=== PATIENT | female | born 1970 | race Caucasian/White ===

== ENCOUNTER → 2024-07-03 | Outpatient (CLI) | payer MEDICAID, SELFPAY | END | disposition home or self-care (01) | LOC: PSN 12:55 | PROVIDERS: PCP Nurse Practitioner Family; Referring Provider Nurse Practitioner Family; Visit Provider Nurse Practitioner Family | DX: J44.9 Chronic obstructive pulmonary disease, unspecified (principal) | CPT/HCPCS: 94060; 94726; 94729 ==

== ENCOUNTER 2024-08-14 10:00 | Outpatient (RCR) | payer MEDICAID, SELFPAY ==
--- NOTE | 2024-08-16 09:07 | HP.FCE ---
Task Lift Floor (Occasional 1-33% of Day): 40# Floor (Frequent 34-66% of Day): 20# Floor (Constant 67-100% of Day): NA Floor PDL: Light-Medium Knee (Occasional 1-33% of Day): 40# Knee (Frequent 34-66% of Day): 20# Knee (Constant 67-100% of Day): NA Knee PDL: Light-Medium Waist (Occasional 1-33% of Day): 40# Waist (Frequent 34-66% of Day): 40# Waist (Constant 67-100% of Day): NA Waist PDL: Light-Medium Shoulder (Occasional 1-33% of Day): 35# Shoulder (Frequent 34-66% of Day): 18# Shoulder (Constant 67-100% of Day): NA Shoulder PDL: Light-Medium Overhead (Occasional 1-33% of Day): 25# Overhead (Frequent 34-66% of Day): 12# Overhead (Constant 67-100% of Day): NA Overhead PDL: Light Comments: Light Medium for Physical demand levels for lifting at floor/knee/waist and shoulder heights. Light Physical demand level for lifting at overhead levels due to LBP 12/12 no constant lifting pt demo with SOB Work Activity/Posture Bending: Frequent Ability (34-66% of day) Squatting: Frequent Ability (34-66% of day) Comments: with external support Kneeling: Occasional Ability (1-33% of day) Comments: with external support Reaching out: Frequent Ability (34-66% of day) Reaching up: Frequent Ability (34-66% of day) Sitting: Frequent Ability (34-66% of day) Walking: Frequent Ability (34-66% of day) Standing: Frequent Ability (34-66% of day) Reference Reference: Duration Sedentary Sedentary Light Light Light Medium Medium Medium Heavy Very Heavy Heavy Occasional (0-33% of day) Frequent (34-66% of day) Constant (67-100% of day) 10 # Negligible Negligible 15 # 8 # Negligible 20 # 10# Negli. 35 # 18 # 7 # 50 # 25 # 10 # 75 # 100 # >100 # 38 # 50 # >50 # 15 # 20 # >20 # Patient Information Height: 1.68 m Weight:: 70.307 kg Hand Dominance: right Medical History Medical History Including Restrictions: pt states she arrives stats she is applying for disability pt states she has had back pain and states the numbness started about three years ago but did not see because she was drinking alcohol and basically an alcoholic she wan not really caring for herself. pt state she was fair physical health until 2019 when she quit her job due to back pain. pt states she has learned to take care of her back with yoga. pt states she does the yoga about 3 days a week. pt states she does attempt to walk a block or more when the weather was nicer. pt is smoker down to smoking 1/2 pack a day. Pt states she has been smoking since she was 15 years old. pt states she did have x-ray completed in Jul. or Jun. Neck, thoracic and lumbar spine. pt states she does not have results of the x-rays at this time. pt denies being placed on lifting restrictions Diagnoses Diagnoses: Back pain COPD lumbar back pain with radiculopathy of left leg. 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 SOB Pain Pain: pt states she does not take pain medication pt states she is taking gabapentin pt states her current pain 0/10 will get pain depending on how long she sleeps pt sits with legs crossed causing numbness. has inhaler for her breathing. Robin pain scale score in Work History Work History: pt states last employment was in 2019 at [employer]. pt states she was not employed more than a year due to back pain she quit this position. 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 Behavioral Behavioral: pt cooperative throughout assessment. ADLS ADLS: Pt states she lives with her mom in a one story home- two entry steps with no rail. pt states she is on one floor- laundry is on first floor as well. has tub shower combination - pt states she does the cleaning, cooking, and laundry. pt does not drive Pt states her mom does drive and her dtr lives next door who can drive her to the grocery store. 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 pt states she is IND with all bathing and dressing activities pt baires not currently use adaptive eq. Physical Examination Physical Examination: resting heart rate 98 ROM: pt demo no noted deficits in her ROM Strength: Fet2 peak force testing shoulder flexion right 7# left 18# shoulder extension right 23# left 16# biceps right 18# left 18# triceps right 16# left 18# Hip flexion right 24# left 26# Quads right 22# left 20# hamstring right 20# left 19.3# pt did not report pain during assesmemnt Right Kiln Cleaner Strength Average: 63.33 Right Kiln Cleaner Strength Percentile: 44% Left Kiln Cleaner Strength Average: 78.33 Left Kiln Cleaner Strength Percentile: 92% Right Lateral Pinch Average: 15.33 Right Lateral Pinch Percentile: 90% Left Lateral Pinch Average: 16.66 Left Lateral Pinch Percentile: >90% Right Tripod Pinch Average: 14.00 Right Tripod Pinch Percentile: 75% Left Tripod Pinch Average: 13.33 Left Tripod Pinch Percentile: 75% Sensation: states tingling in left fingers but comes and goes Fine Motor: denies issues Balance: functional reach test 14 pt demo no loss of balance during assessment. pt demo good balance throughout assessment Non Material Handling Activities Bending: pt demo the ability to bend forward 3/3x , 101/10x and 10/10x rapidly heart rate 125 following pt demo the ability to bend forward on a frequent ability Squatting: pt demo the ability to squat 3/3x , 10/10 heart rate 118 spO2 94 pt able to perform 10/10x rapidly with external support pt did states she did get increase in left side lumbar with radiating down left leg pt demo the ability to squat on occasional ability with external support Kneeling: pt demo the ability to kneel 3/3x and 10/10x with external support. pt states she started to get leg craps in her thighs. pt sat down therapist noted SOB with tasks heart rate 118 and SpO2 94 pt demo the ability to kneel on occasional ability with external support Reaching out/up: pt demo the ability to reach out 3/3x, 10/10x and 10/10x rapidly pt demo the ability to reach up/3/3x , 10/10x and 10/10x rapidly heart rate 105 spo2 98 pt can reach up/out on frequent ability Walking: pt demo the ability to ambulate 10 min with good reciprocal step pattern- noted SOB at this lien- pt SpO2 stayed at 99% Standing: pt demo standing for 10 min with shifting body weights pt can stand frequent ability Sitting: pt demo the ability to sit for 45 min with noted shifting her body weight pt can sit frequent ability Climbing Stairs: pt demo the ability to ascend and descend 10 steps with reciprocal step patter- with use of one rail for support. Dynamic Occasional Lifting Capacity Floor Lift: pt demo the ability to lift 25#( + box 15#) for maximin lift ability of 40# from this level with fair lifting mechanics Knee Lift: pt demo the ability to lift 25#( + box 15#) for maximin lift ability of 40# from this level with fair lifting mechanics Waist Lift: pt demo the ability to lift 25#( + box 15#) for maxamin lift ability of 40# from this level with fair lifting mechanics Shoulder Lift: pt demo the ability to lift 25#( + box 15#) for maximin lift ability of 40# from this level with fair lifting mechanics Overhead Lift: pt demo the ability to lift 25# over head with fair ability Carrying: pt demo the ability to carry 35# for 30 feet and back Comments: pt demo good physical ability for this assessment. therapist noted increase SOB with tasks but SpO2 stayed at 99%-97%. pt has not worked since 2019 and since this time she has quit consuming alcohol and has reduced her cigarette smoking to 1/2 a pack a day. pts pain level 0-4/10 through assessment.
--- NOTE | 2024-08-16 09:07 | HP.OTFCE.D ---
FCE D/C Summary Discharge text: PAT HUANG was seen for a one time visit for an FCE on 08/14/24 and is discharged.
== END 2024-08-14 19:00 | disposition home or self-care (01) ==
LOC: OT 10:00
PROVIDERS: PCP Nurse Practitioner Family; Referring Provider Nurse Practitioner Family; Visit Provider Nurse Practitioner Family
DX: M54.41 Lumbago with sciatica, right side (principal); M99.79 Connective tissue and disc stenosis of intervertebral foramina of abdomen and other regions; M54.16 Radiculopathy, lumbar region; M54.12 Radiculopathy, cervical region; J44.9 Chronic obstructive pulmonary disease, unspecified
CPT/HCPCS: 97750